=== PATIENT | male | born 1930 | race Caucasian/White ===

== ENCOUNTER → 2016-09-06 | Day surgery (SDC) | payer BC, MEDICARE ==
[~2016-09-06] MED LIST: BUPIVACAINE/EPINEPHRINE 0.25% 50 ML VIAL ONE; LACTATED RINGER'S 1000 ML INJ 1,000 ML ONE; LIDOCAINE 1%/EPINEPHrine 1:100,000 SOLN 50 ML VIAL ONE; ONDANSETRON HCL 4 MG/2 ML VIAL IV PUSH ONE; PROPOFOL 100 MG/10 ML INJ IV ONE; SODIUM CHLORIDE 0.9% 250 ML ADDBAG IV ONE; VANCOMYCIN HCL 1000 MG VIAL ONE
--- NOTE | 2016-09-06 12:29 | TN ---
cc: CIARRA CHAUDHRY M.D., DAVID A. M.D. BIANCHI, JOSEPH D. M.D. DATE OF SURGERY: 09/06/2016 PREOPERATIVE DIAGNOSIS Incarcerated left inguinal hernia. POSTOPERATIVE DIAGNOSIS Incarcerated left inguinal hernia. PROCEDURE 1. Reduction of incarcerated left inguinal hernia. 2. Repair left inguinal hernia with mesh. ANESTHESIA TIVA. SURGEON Dr. Lau. PAPER TESTER JANEL Medina The [employer]ALTH[employer] R[employer]K CONTROL CONSULTANT was present from beginning to the end of the case assisting in all portions of the procedure. It was necessary to have this individual in the room to assist in the above surgical procedure. The surgical procedure was assisted by the HEALTHCARE RISK CONTROL CONSULTANT. The HEALTHCARE RISK CONTROL CONSULTANT presence was necessary throughout the case for appropriate retraction, dissection, visualization, and resection of the important anatomical structures during the surgical procedure. The HEALTHCARE RISK CONTROL CONSULTANT was assisting throughout the entirety of the operation. The skill set of the HEALTHCARE RISK CONTROL CONSULTANT is medically and surgically necessary to safely complete the surgical procedure. During the surgical case, the operating room surgical services director was working instrument table and passing instruments to the attending surgeon and HEALTHC[employer] RISK CONTROL CONSULTANT. The HEALTHCARE RISK CONTROL CONSULTANT was directly assisting the operating surgeon and involved in the technical aspects of the surgical case. INDICATION This is a pleasant 85-year-old gentleman who has a longstanding symptomatic incarcerated left inguinal hernia. Plans were made for above. PROCEDURE The patient was taken to the operating room and placed supine on the operating table. After anesthesia his left groin was prepped with Betadine. He was given preoperative antibiotics. Time-out was done. We tried to reduce the hernia after he is under anesthesia, this is unable to be done. We then make an oblique incision overlying the internal external ring, dissect down through Reilly's fascia identifying the external oblique aponeurosis which was incised. A large incarcerated hernia was identified with omentum. With gentle retraction and extending the internal oblique aponeurosis we were able to reduce this. The sac is completely reduced as well. It is noted to be quite fatty. We then place a piece of polypropylene mesh securing it to the pubic tubercle, Ulysses's ligament, iliopubic tract out laterally and the conjoined tendon medially. Tails were fashioned and surrounded with the cord structures and secured to the internal oblique aponeurosis. Tails were then secured to themselves and the internal oblique aponeurosis. It is noted that we sacrificed the ilioinguinal nerve as it was stretched and would be laying on top of the mesh. After the hernia was repaired we then irrigate copiously. Hemostasis was assured. We then closed the external oblique aponeurosis with 2-0 running Vicryl suture, Reilly's with a 3-0 and skin with 4-0. Steri-Strips were applied. Sterile bandage was applied. The patient tolerated the procedure well and had no immediate postop complications. Shad Lau MD JDB/[place] /12:07 PM /12:14 PM MTDKeila
== END | disposition home or self-care (01) ==
LOC: ESDC 10:04
PROVIDERS: ATTEND Surgery
DX: K40.30 Unilateral inguinal hernia, with obstruction, without gangrene, not specified as recurrent (principal)
CPT/HCPCS: 00830; 49507; C1781; J2405; J3010; J3370; J7120